=== PATIENT | female | born 1945 | race Hispanic/Latino ===

== ENCOUNTER 2016-11-23 12:07 | Observation (INO) | payer MEDICARE, BC ==
[2016-11-23 12:20] VITALS: BMI 27.1
[2016-11-23 12:34] LABS: BASO % 0.5 % (0.0-2.0); HEMATOCRIT 38.5 % (34.0-47.0); LYMPH # 1.2 K/uL (1.0-4.3); LYMPH % 18.9 % (20.0-40.0); MEAN CELL VOLUME 84.6 fL (81.0-99.0); MEAN CORPUSCULAR HEMOGLOBIN 27.7 pg (27.0-31.0); MEAN CORPUSCULAR HGB CONC 32.8 g/dL (33.0-37.0); MONO # 0.8 K/uL (0.0-0.8); MONO % 12.4 % (0.0-10.0); RED CELL DISTRIBUTION WIDTH 21.9 % (11.5-14.5); WHITE BLOOD COUNT 6.6 K/uL (4.8-10.8)
[2016-11-23 12:41] LABS: CHLORIDE 105 mmol/L (98-107); POTASSIUM 3.5 mmol/L (3.6-5.2); SODIUM 137 mmol/L (132-148)
[2016-11-23 12:43] LABS: BILIRUBIN,TOTAL 0.6 mg/dL (0.2-1.3); GFR AFRICAN-AMERICAN > 60
[2016-11-23 12:44] LABS: ALB/GLOB RATIO 1.3 (1.0-2.1); ALKALINE PHOSPHATASE 49 U/L (38-126); ALT/SGPT 24 U/L (9-52); AST/SGOT 22 U/L (14-36); BLOOD UREA NITROGEN 7 mg/dL (7-17); CALCIUM 9.4 mg/dl (8.6-10.4); CARBON DIOXIDE 17 mmol/L (22-30); GLUCOSE,RANDOM 84 mg/dL (65-105); TOTAL PROTEIN 7.7 g/dL (6.3-8.3)
[2016-11-23 12:45] LABS: ALCOHOL SERUM < 10 mg/dl (0-10)
--- NOTE | 2016-11-23 13:19 | C.PDOC ---
History Of Present Illness <Leilani Castle - Last Filed: 11/23/16 18:42> <Cornelio Farley - Last Filed: 11/23/16 19:41> 71 y/o female presents to the ED requesting detox. 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 Pt also reports feeling suicidal if she doesn't get help. Pt denies any other physical complaints at this time. (Leilani Castle) History Per: Patient History/Exam Limitations: no limitations Onset/Duration Of Symptoms: Days Current Symptoms Are (Timing): Still Present Severity: Moderate Associated Symptoms: Suicidal Thoughts Involuntary Hold By: None Recent travel outside of the [place]: No <Leilani Castle - Last Filed: 11/23/16 18:42> <Cornelio Farley - Last Filed: 11/23/16 19:41> Time Seen by Provider: 11/23/16 12:17 Chief Complaint (Nursing): Psychiatric Evaluation Past Medical History Reviewed: Historical Data, Nursing Documentation, Vital Signs - Medical History PMH: Anxiety, Depression, Fractures (right hip, left wrist), HTN, Hypercholesterolemia Family History: States: Unknown Family Hx - Social History Hx Alcohol Use: No Hx Substance Use: No <Leilani Castle - Last Filed: 11/23/16 18:42> Review Of Systems Except As Marked, All Systems Reviewed And Found Negative. Constitutional: Negative for: Fever Cardiovascular: Negative for: Chest Pain Respiratory: Negative for: Shortness of Breath Gastrointestinal: Negative for: Abdominal Pain Neurological: Negative for: Headache Psych: Positive for: Suicidal ideation <Leilani Castle - Last Filed: 11/23/16 18:42> Physical Exam - Physical Exam Appears: Non-toxic, No Acute Distress Skin: Warm, Dry, No Rash, Other (multiple old scars on forearms) Head: Atraumatic, Normacephalic Neck: Normal, Normal ROM, Supple Chest: Symmetrical Cardiovascular: Rhythm Regular, No Murmur Respiratory: Normal Breath Sounds, No Rales, No Rhonchi, No Wheezing Extremity: Normal ROM Extremity: Bilateral: Atraumatic Neurological/Psych: Oriented x3, Normal Speech <Leilani Castle Last Filed: 11/23/16 18:42> ED Course And Treatment - Laboratory Results Result Diagrams: 11/23/16 12:30 11/23/16 12:30 Lab Interpretation: Normal ECG: Interpreted By Me ECG Rhythm: Sinus Rhythm ECG Interpretation: No Acute Changes Rate From EC O2 Sat by Pulse Oximetry: 98 (room air) Pulse Ox Interpretation: Normal - Radiology CXR: Interpreted by Me CXR Interpretation: Yes: No Acute Disease Progress Note: Plan: CRISIS evaluation, EKG, CXR, UA. Patient medically cleared for psych transfer Reassessment Condition: Unchanged <Leilani Castle - Last Filed: 11/23/16 18:42> - Laboratory Results Result Diagrams: 11/23/16 12:30 11/23/16 18:47 ECG: Interpreted By Me, Viewed By Me ECG Rhythm: Sinus Rhythm ECG Interpretation: No Acute Changes Interpretation Of ECG: Sinus rhythm with premture atrial complexes with aberrant conduction, otherwisse normal tracings Rate From EC <Cornelio Farley R - Last Filed: 11/23/16 19:41> ED OBSERVATION <Leilani Castle - Last Filed: 11/23/16 18:42> <Ashlie Farleyel R - Last Filed: 11/23/16 19:41> - Goals of Observation Goals of observation are:: crisis evaluation (Leilani Castle) Disposition - Disposition Disposition Time: 19:00 - POA Present On Arrival: None <Leilani Castle - Last Filed: 11/23/16 18:42> <Ashlie Farleyel R - Last Filed: 11/23/16 19:41> - Disposition Condition: STABLE - Clinical Impression Clinical Impression: Anxiety, Depression - PA / TABLEMAN / Resident Statement MD/DO has reviewed & agrees with the documentation as recorded. - Scribe Statement The provider has reviewed the documentation as recorded by the Scribe <Leilani Castle - Last Filed: 11/23/16 18:42> <Cornelio Farley R - Last Filed: 11/23/16 19:41> - Scribe Statement Andre Garcia All medical record entries made by the Scribe were at my direction and personally dictated by me. I have reviewed the chart and agree that the record accurately reflects my personal performance of the history, physical exam, medical decision making, and the department course for this patient. I have also personally directed, reviewed, and agree with the discharge instructions and disposition. (Leilani Castle) Physician Patient Turnover Patient Signed Over To: Cornelio Farley Handoff Comments: Pending [facility] <Leilani Castle - Last Filed: 11/23/16 18:42>
[2016-11-23 13:39] LABS: URINE BACTERIA MOD (<OCC); URINE BILIRUBIN NEGATIVE (NEGATIVE); URINE BLOOD NEGATIVE (NEGATIVE); URINE COLOR Yellow (YELLOW); URINE GLUCOSE (UA) NORMAL (Normal); URINE KETONE TRACE mg/dL (NEGATIVE); URINE LEUKOCYTE ESTERASE NEG Leu/uL (Negative); URINE PROTEIN NEGATIVE (NEGATIVE); URINE UROBILINOGEN NORMAL mg/dL (0.2-1.0); WBC URINE 3 /hpf (0-5)
--- NOTE | 2016-11-23 14:42 | RAD ---
PROCEDURE: CHEST RADIOGRAPH, 1 VIEW HISTORY: SOB COMPARISON: I man consistent this is a chest is rounded in an are midstomach yes patient was FINDINGS: LUNGS: Clear. PLEURA: No pneumothorax or pleural fluid seen. CARDIOVASCULAR: Normal heart size. Suspect retrocardiac hiatal hernia. OSSEOUS STRUCTURES: No significant abnormalities. VISUALIZED UPPER ABDOMEN: Normal. OTHER FINDINGS: None. IMPRESSION: Probable hiatal hernia. No pulmonary infiltrate.
[2016-11-23] MEDS ORDERED: Potassium Chloride 20 mEq/15 ml LIQ UD PO STA (16:30)
[2016-11-23] MEDS ORDERED: Potassium Chloride 20 mEq ER Tab PO ONE (16:41)
[2016-11-23 16:51] VITALS: RESP 18
[2016-11-23 18:58] LABS: CHLORIDE 105 mmol/L (98-107); POTASSIUM 3.7 mmol/L (3.6-5.2); SODIUM 136 mmol/L (132-148)
[2016-11-23 19:01] LABS: ALB/GLOB RATIO 1.2 (1.0-2.1); ALKALINE PHOSPHATASE 46 U/L (38-126); ALT/SGPT 17 U/L (9-52); AST/SGOT 21 U/L (14-36); BILIRUBIN,TOTAL 0.6 mg/dL (0.2-1.3); BLOOD UREA NITROGEN 7 mg/dL (7-17); CARBON DIOXIDE 19 mmol/L (22-30); GFR AFRICAN-AMERICAN > 60; GLUCOSE,RANDOM 152 mg/dL (65-105); TOTAL PROTEIN 7.7 g/dL (6.3-8.3)
[2016-11-23 19:02] LABS: CALCIUM 9.2 mg/dl (8.6-10.4)
[2016-11-23 19:37] VITALS: BP 130/84; PULSE 97; TEMP 98.3; O2SAT 100
--- NOTE | 2016-12-01 01:35 | CARD ---
APPROVED REPORT EKG Measurement Heart [id number] <Conclusion> Sinus rhythm with premature atrial complexes with aberrant conduction Otherwise normal ECG
== END 2016-11-23 20:12 | disposition short-term general hospital (02) ==
LOC: C.ER 12:07 → C.9OBSV 13:31
PROVIDERS: ADMIT Emergency Medicine; ATTEND Emergency Medicine
DX: F41.9 Anxiety disorder, unspecified (principal); F32.9 Major depressive disorder, single episode, unspecified; R45.851 Suicidal ideations; I10 Essential (primary) hypertension; E78.00 Pure hypercholesterolemia, unspecified
CPT/HCPCS: 71010; 80053; 81001; 85025; G0378; G0480

== ENCOUNTER 2017-03-22 07:37 | Day surgery (SDC) | payer MEDICARE, BC ==
[2017-03-14 10:46] VITALS: BMI 15.7
[~2017-03-22 07:37] MED LIST: Ciprofloxacin 0.3% OPTH SOLN OS SCH; Cyclopentolate 1% Opth (2 ml) OS SCH; Flurbiprofen 0.03% Opht SOLN OS SCH; Lactated Ringer's 500 ML IV ONE; Phenylephrine 2.5% Opht Soln OS SCH; Tropicamide 1% Opht SOLUTION OS SCH
[2017-03-22] MEDS ORDERED: Carbachol 0.01% IO ONE (07:39)
[2017-03-22] MEDS ORDERED: Povidone Iodine Ophthalmic 5% Soln ONE (07:39)
[2017-03-22] MEDS ORDERED: Tetracaine 0.5% Ophth (OR ONLY) ONE (07:39)
[2017-03-22] MEDS ORDERED: Tobramycin/Dexamethasone OPHT OINT ONE (07:39)
[2017-03-22] MEDS ORDERED: Lidocaine 2% Inj (20ml) ONE (07:39)
[2017-03-22] MEDS ORDERED: Hyaluronidase Human, Recombi 150 U/ML VIAL ONE (07:40)
[2017-03-22] MEDS ORDERED: Lactated Ringer's 500 ML IV ONE (10:50)
[2017-03-22] MEDS ORDERED: Midazolam 2 MG/2 ML VIAL ONE (10:55)
[2017-03-22] MEDS: Chondroitin/Hyaluronate Opth Syringe KIT (0.55 ml-0.5 ml) IO ONE ×2 (11:06→11:16)
[2017-03-22] MEDS ORDERED: Chondroitin/Hyaluronate 40 mg/ml-30 mg/ml Ophth Syringe (0.5 ml) IO ONE (11:11)
[2017-03-22 13:00] VITALS: BP 158/76; PULSE 79; RESP 16; TEMP 97.4; O2SAT 98
--- NOTE | 2017-03-22 14:02 | OP ---
PROCEDURE DATE: 03/22/2017 PREOPERATIVE DIAGNOSIS: Cataract, left eye. POSTOPERATIVE DIAGNOSIS: Cataract, left eye. PROCEDURE: Phacoemulsification left eye, posterior chamber implant. SURGEON: Florentino Archer MD ANESTHESIA TYPE: Local intravenous sedation. PROCEDURE: The patient was brought into the operating room, placed in supine position, prepped and draped in the usual fashion for ophthalmic surgery. Lid speculum was inserted, lids and exposing globe. A side-port incision was made superiorly and inferiorly with a disposable sharp blade. Anterior chamber was filled with Viscoat. A near clear corneal incision was made temporally with a 2.75-mm keratome. Capsulorrhexis was then performed with Utrata forceps. Hydrodissection carried out with balanced salt solution. Nucleus was phacoemulsified. Remaining cortical fragments were removed with a split irrigation and aspiration system. The capsular sac was filled with Provisc. A posterior chamber lens was then injected into the capsular sac and rotated into horizontal position. Provisc was aspirated out of the anterior chamber. The pupil was constricted with Miochol. The wound was found to be watertight. Topical Betadine, Timoptic, and TobraDex ointment and pressure patch were applied. The patient tolerated the procedure well. Florentino Archer MD
== END 2017-03-22 12:40 | disposition home or self-care (01) ==
LOC: C.SDS 07:37
PROVIDERS: ATTEND Ophthalmology
DX: H25.12 Age-related nuclear cataract, left eye (principal)
CPT/HCPCS: 66984; J2250; J3010; J3470; J7120; V2632

== ENCOUNTER 2017-04-19 06:57 | Day surgery (SDC) | payer MEDICARE, BC ==
[2017-03-14 10:45] VITALS: BMI 15.7
[~2017-04-19 06:57] MED LIST changes: +Ciprofloxacin 0.3% OPTH SOLN OD SCH; -Ciprofloxacin 0.3% OPTH SOLN OS SCH; +Cyclopentolate 1% Opth (2 ml) OD SCH; -Cyclopentolate 1% Opth (2 ml) OS SCH; +Flurbiprofen 0.03% Opht SOLN OD SCH; -Flurbiprofen 0.03% Opht SOLN OS SCH; +Phenylephrine 2.5% Opht Soln OD SCH; -Phenylephrine 2.5% Opht Soln OS SCH; +Tropicamide 1% Opht SOLUTION OD SCH; -Tropicamide 1% Opht SOLUTION OS SCH
[2017-04-19] MEDS ORDERED: Tetracaine 0.5% Ophth (OR ONLY) ONE (07:38)
[2017-04-19] MEDS ORDERED: Carbachol 0.01% IO ONE (07:38)
[2017-04-19] MEDS ORDERED: Povidone Iodine Ophthalmic 5% Soln ONE (07:38)
[2017-04-19] MEDS ORDERED: Hyaluronidase Human, Recombi 150 U/ML VIAL ONE (07:39)
[2017-04-19] MEDS ORDERED: Tobramycin/Dexamethasone OPHT OINT ONE (07:39)
[2017-04-19] MEDS ORDERED: Chondroitin/Hyaluronate Opth Syringe KIT (0.55 ml-0.5 ml) IO ONE (07:39)
[2017-04-19] MEDS ORDERED: Lidocaine 2% Inj (20ml) ONE (07:39)
[2017-04-19] MEDS ORDERED: Lactated Ringer's 1,000 ML IV ONE (09:10)
[2017-04-19] MEDS ORDERED: Midazolam 2 MG/2 ML VIAL ONE (09:18)
--- NOTE | 2017-04-19 12:35 | OP ---
PROCEDURE DATE: 04/19/2017 SURGEON: Dr. Archer. PREOPERATIVE DIAGNOSIS: Hypermature cataract, right eye. POSTOPERATIVE DIAGNOSIS: Hypermature cataract, right eye. OPERATIVE PROCEDURE: Phacoemulsification, right eye with insertion of lens implant and utilization of capsular dye. ANESTHESIA: Local with intravenous sedation. PROCEDURE: The patient was brought into the operating room and placed in supine position, prepped and draped in the usual fashion for ophthalmic surgery. Lid speculum inserted, lids and exposing globe. On inspection, there was noted to be a hypermature cataract. A side-port incision was made superiorly and inferiorly with disposable sharp blade. An air bubble was injected in the anterior chamber followed by capsular dye to stain the anterior capsule. The dye was irrigated out of the anterior chamber with balanced salt solution. The anterior chamber was deepened with Viscoat. A near clear corneal incision was made temporally with a 2.75-mm keratome. Capsulorrhexis was performed with Utrata forceps. Hydrodissection was carried out with balanced salt solution. The nucleus was then phacoemulsified. Remaining cortical fragments were aspirated with a split irrigation and aspiration system. The capsular sac was filled with Provisc. Posterior chamber lens was injected into the sac and rotated into horizontal position. Provisc was aspirated out of the anterior chamber. Pupil was constricted with Miochol. The wound was hydrated with balanced salt solution and found to be watertight. Topical Timoptic, Betadine, TobraDex ointment, and pressure patch were applied. The patient tolerated the procedure well. Florentino Archer MD
[2017-04-19 13:47] VITALS: BP 165/75; PULSE 69; RESP 18; TEMP 97.8; O2SAT 97
== END 2017-04-19 11:00 | disposition home or self-care (01) ==
LOC: C.SDS 06:57
PROVIDERS: ATTEND Ophthalmology
DX: H26.9 Unspecified cataract (principal)
CPT/HCPCS: 66984; C1713; J2250; J3010; J3470; J7120; V2632